=== PATIENT | female | born 1970 | race Caucasian/White ===

== ENCOUNTER 2018-02-26 09:14 | Emergency (ER) | payer OTHER ==
[~2018-02-26] VITALS: Ht 177.8 cm; Wt 73.9 kg
[2018-02-26 09:29] VITALS: BP 131/92; Ht 177.8 cm; Wt 73.9 kg
== END 2018-02-26 10:06 | disposition home or self-care (01) ==
LOC: ED 09:14
DX: S00.83XA Contusion of other part of head, initial encounter (principal); S09.8XXA Other specified injuries of head, initial encounter; W01.0XXA Fall on same level from slipping, tripping and stumbling without subsequent striking against object, initial encounter; Y93.89 Activity, other specified; Y92.89 Other specified places as the place of occurrence of the external cause; Y99.8 Other external cause status